=== PATIENT | male | born 1970 | race American Indian/Alaskan Native ===

== ENCOUNTER 2016-11-26 23:16 | Inpatient (IN) | payer OTHER ==
--- NOTE | 2016-11-27 00:09 | C.PDOC ---
History Of Present Illness 46 y/o MALE C/O INTERMITTENT RIGHT SIDED CHEST WALL PAIN FOR 1 WEEK. PT REPORTS PAIN IS WORSE WITH POSITION CHANGE. ALSO REPORTS MILD COUGH. DENIES FEVER, CHILLS, SOB, OR SHAH. DENIES HISTORY OF ASTHMA OR SMOKING. NOTES HE TOOK 2 ADVIL 2 HOURS [employer] WITH LIMITED RELIEF. Time Seen by Provider: 11/27/16 00:04 Chief Complaint (Nursing): Chest Pain History Per: Patient History/Exam Limitations: no limitations Onset/Duration Of Symptoms: Intermittent Episodes (1 WEEK) Current Symptoms Are (Timing): Still Present Quality: "Pain" Associated Symptoms: denies: Dyspnea, Diaphoresis Exacerbating Factors: Movement Recent travel outside of the [place]: No Past Medical History Reviewed: Historical Data, Nursing Documentation, Vital Signs Vital Signs: Last Vital Signs Temp 99 F 11/27/16 00:08 Pulse 97 H 11/27/16 01:14 Resp 24 11/27/16 01:14 BP 128/76 11/27/16 01:14 Pulse Ox 97 11/27/16 01:14 - Medical History PMH: HTN Surgical History: Appendectomy Family History: States: Unknown Family Hx - Social History Hx Alcohol Use: Yes Hx Substance Use: No - Immunization History Hx Tetanus Toxoid Vaccination: No Hx Influenza Vaccination: No Hx Pneumococcal Vaccination: No Review Of Systems Except As Marked, All Systems Reviewed And Found Negative. Constitutional: Negative for: Fever, Chills Cardiovascular: Negative for: Palpitations Respiratory: Positive for: Cough. Negative for: Shortness of Breath Gastrointestinal: Negative for: Nausea, Vomiting, Abdominal Pain Musculoskeletal: Positive for: Other (CHEST WALL PAIN, RIGHT) Skin: Negative for: Rash Neurological: Negative for: Headache, Dizziness Physical Exam - Physical Exam Appears: Non-toxic, No Acute Distress Skin: Warm, Dry Head: Atraumatic, Normacephalic Neck: Supple Chest: Symmetrical, Tenderness (REPRODUCIBLE R CHEST WALL) Cardiovascular: Rhythm Regular (RRR, TACHYCARDIC), No Murmur Respiratory: Normal Breath Sounds, No Rales, No Rhonchi, No Wheezing Gastrointestinal/Abdominal: Soft, No Tenderness, No Guarding, No Rebound Back: Normal Inspection Extremity: Normal ROM, Capillary Refill (< 2 SEC. ) Neurological/Psych: Oriented x3, Normal Speech, Normal Cognition ED Course And Treatment - Laboratory Results Result Diagrams: 11/27/16 00:28 11/27/16 00:28 ECG: Interpreted By Me ECG Rhythm: Sinus Tachycardia ECG Interpretation: No Acute Changes Rate From EC O2 Sat by Pulse Oximetry: 99 - Radiology CXR: Interpreted by Me CXR Interpretation: Yes: Other (POSSIBLE R PERIHILAR INFILTRATE) - CT Scan/US ANGIO CHEST Other Rad Studies (CT/US): Radiology Report Reviewed (VRAD: +PE RLL PULM ARTERY) Progress - Re-Evaluation Re-evaluation Note: 11/27/16 00:10 EKG, CXR, BLOODWORK ORDERED. LIDODERM PATCH GIVEN. 11/27/16 00:50 ABN DDIMER. VSS, EXAM UNCH PRIOR. WILL CTA 11/27/16 03:23 +PE ON CTA. PERSIST SINUS TACH @ 110. NARD. 11/27/16 03:50 D/W DR SARMIENTO C/F ICU, CLEARED FOR TELE 11/27/16 04:01 D/W DR MENDES WILL ADMIT - Data Reviewed Data Reviewed: Lab, Diagnostic imaging, EKG, Old records - Critical Care Citical Care: Excluding Proc Time Critical Care Time: 120 minutes Disposition Counseled Patient/Family Regarding: Studies Performed, Diagnosis, Need For Followup - Disposition Disposition: HOSPITALIZED Disposition Time: 04:00 Condition: STABLE - POA Present On Arrival: Deep Vein Thrombosis / PE - Clinical Impression Clinical Impression: Pulmonary embolism - Scribe Statement The provider has reviewed the documentation as recorded by the Lamin Vo Provider Scribe Attestation: All medical record entries made by the Scribe were at my direction and personally dictated by me. I have reviewed the chart and agree that the record accurately reflects my personal performance of the history, physical exam, medical decision making, and the department course for this patient. I have also personally directed, reviewed, and agree with the discharge instructions and disposition. Decision To Admit - Pt Status Changed To: Hospital Disposition Of: Inpatient - Admit Certification Admit to Inpatient:: After my assessment, the patient will require hospitalization for at least two midnights. This is because of the severity of symptoms shown, intensity of services needed, and/or the medical risk in this patient being treated as an outpatient. - InPatient: Physician Admission Certification: I certify that this patient requires 2 or more midnights of care for the following reason:: SEE NOTE - . Bed Request Type: Telemetry Admitting Physician: Jj Mendes Patient Diagnosis: Pulmonary embolism
[2016-11-27] MEDS ORDERED: Lidocaine 5% Patch TD STA (00:10)
[2016-11-27] MEDS ORDERED: Lidocaine 5% Patch TD ONE (00:10)
[2016-11-27 00:36] LABS: BASO % 0.4 % (0.0-2.0); EOS % 0.1 % (0.0-4.0); HEMATOCRIT 37.3 % (35.0-51.0); LYMPH # 1.9 K/uL (1.0-4.3); LYMPH % 27.4 % (20.0-40.0); MEAN CELL VOLUME 83.9 fL (80.0-94.0); MEAN CORPUSCULAR HEMOGLOBIN 29.2 pg (27.0-31.0); MEAN CORPUSCULAR HGB CONC 34.8 g/dL (33.0-37.0); MEAN PLATELET VOLUME 8.5 fL (7.2-11.7); MONO # 0.8 K/uL (0.0-0.8); MONO % 12.1 % (0.0-10.0); RED CELL DISTRIBUTION WIDTH 13.1 % (11.5-14.5); WHITE BLOOD COUNT 6.8 K/uL (4.8-10.8)
[2016-11-27 00:52] LABS: BLOOD UREA NITROGEN 12 mg/dL (9-20); CALCIUM 9.2 mg/dl (8.6-10.4); CARBON DIOXIDE 25 mmol/L (22-30); CHLORIDE 95 mmol/L (98-107); GFR AFRICAN-AMERICAN > 60; GLUCOSE,RANDOM 111 mg/dL (75-110); POTASSIUM 3.3 mmol/L (3.6-5.2); SODIUM 134 mmol/L (132-148)
[2016-11-27] MEDS ORDERED: Iodixanol 320 MG/ML 100 ML BOTTLE IV ONE (01:46)
[2016-11-27] MEDS ORDERED: Enoxaparin 80 mg Syringe SC STA (03:24)
[2016-11-27] MEDS ORDERED: Enoxaparin 80 mg Syringe ONE (03:37)
--- NOTE | 2016-11-27 04:09 | CP.PCM.HP ---
<Michael Chong - Last Filed: 11/27/16 04:44> History of Present Illness - History of Present Illness History of Present Illness: HPI: Patient is a 46 year old male, with PHMx of HTN, who presents to the [facility] ED with chest pain. Pt reports he first noticed the chest pain on of this week, while he was lying in bed. He describes the pain as a "sharp, intermittent" located on the right side of his chest, radiating down into his right abdomen, that he rates 9/10 on the severity pain scale. Pt reports the pain is made better by rest, and worsened when he lays down, positional changes (sitting up), coughing, and deep inhalation. He also says the pain has been associated with dry cough, which began one week prior. He attempted relief on by taking zantac and dimitris neli. He made appointment with primary care and was given Z-pack which did not help. He also taking 2 advil tablets this afternoon to no avail. He denies recent heavy lifting. He denies fever, chills, headaches, dizziness, hearing, palpitations, or SOB. He denies recent surgeries, but admits frequent air travel "every other weekend." His latest flight was to [place] PMHx: HTN (Dx 7 years ago, has taken HCTZ ever since) PSHx: Appendectomy (2005) SHx: denies ever smoking, admits social alcohol use, denies drug use Fam Hx: Mother and father: HTN Allergies: denies PMD: Jessica (Likely) Present on Admission - Present on Admission Any Indicators Present on Admission: No Review of Systems - Constitutional Constitutional: absent: Chills, Fever - EENT Eyes: absent: Change in Vision Ears: absent: Decreased Hearing - Cardiovascular Cardiovascular: Chest Pain. absent: Chest Pain at Rest, Dyspnea, Dyspnea on Exertion - Respiratory Respiratory: Cough (dry, non-productive; x 1 week). absent: Dyspnea - Gastrointestinal Gastrointestinal: absent: Abdominal Pain, Nausea, Vomiting - Genitourinary Genitourinary: absent: Dysuria - Musculoskeletal Musculoskeletal: absent: Numbness - Integumentary Integumentary: absent: Wounds - Neurological Neurological: absent: Tingling, Weakness - Psychiatric Psychiatric: absent: Anxiety, Depression - Hematologic/Lymphatic Hematologic: absent: Easy Bleeding Past Patient History - Past Social History Smoking Status: Never Smoked - CARDIAC Hx Hypertension: Yes - PULMONARY Hx Respiratory Disorders: No - NEUROLOGICAL Hx Neurological Disorder: No - HEENT Hx HEENT Problems: No - RENAL Hx Chronic Kidney Disease: No - ENDOCRINE/METABOLIC Hx Endocrine Disorders: No - HEMATOLOGICAL/ONCOLOGICAL Hx Blood Disorders: No - INTEGUMENTARY Hx Dermatological Problems: No - MUSCULOSKELETAL/RHEUMATOLOGICAL Hx Musculoskeletal Disorders: No - GASTROINTESTINAL Hx Gastrointestinal Disorders: No - GENITOURINARY/GYNECOLOGICAL Hx Genitourinary Disorders: No - PSYCHIATRIC Hx Substance Use: No - SURGICAL HISTORY Hx Appendectomy: Yes - ANESTHESIA Hx Anesthesia: Yes Hx Anesthesia Reactions: No Meds Allergies/Adverse Reactions: Allergies Allergy/AdvReac Type Severity Reaction Status Date / Time No Known Allergies Allergy Verified 11/26/16 23:30 Physical Exam - Constitutional Appears: Non-toxic, No Acute Distress - Head Exam Head Exam: ATRAUMATIC, NORMAL INSPECTION, NORMOCEPHALIC - Eye Exam Eye Exam: EOMI Pupil Exam: PERRL - ENT Exam ENT Exam: Mucous Membranes Moist - Neck Exam Additional comments: no jvd - Respiratory Exam Respiratory Exam: Chest Wall Tenderness, Clear to Auscultation Bilateral. absent: Rales, Rhonchi, Wheezes - Cardiovascular Exam Cardiovascular Exam: Tachycardia, +S1, +S2 - GI/Abdominal Exam GI & Abdominal Exam: Normal Bowel Sounds, Soft. absent: Tenderness - Extremities Exam Extremities exam: Positive for: normal inspection. Negative for: pedal edema - Back Exam Back exam: absent: CVA tenderness (L), CVA tenderness (R) - Neurological Exam Neurological exam: Alert, CN II-XII Intact, Oriented x3 - Psychiatric Exam Psychiatric exam: Normal Affect - Skin Skin Exam: Normal Color, Warm Results - Vital Signs Recent Vital Signs: Last Vital Signs Temp 98.4 F 11/27/16 03:32 Pulse 97 H 11/27/16 03:32 Resp 24 11/27/16 03:32 BP 137/90 11/27/16 03:32 Pulse Ox 99 11/27/16 04:01 - Labs Result Diagrams: 11/27/16 00:28 11/27/16 00:28 Labs: Laboratory Results - last 24 hr 11/27/16 11/27/16 11/27/16 00:28 00:28 00:28 WBC 6.8 RBC 4.45 Hgb 13.0 Hct 37.3 MCV 83.9 MCH 29.2 MCHC 34.8 RDW 13.1 Plt Count 275 MPV 8.5 Neut % (Auto) 60.0 Lymph % (Auto) 27.4 [place] % (Auto) 12.1 H Eos % (Auto) 0.1 Baso % (Auto) 0.4 Neut # 4.1 Lymph # 1.9 [place] # 0.8 Eos # 0.0 Baso # 0.0 D-Dimer, Quantitative 573 H Sodium 134 Potassium 3.3 L Chloride 95 L Carbon Dioxide 25 Anion Gap 17 BUN 12 Creatinine 1.2 Est GFR ( Amer) > 60 Est GFR (Non-Af Amer) > 60 Random Glucose 111 H Calcium 9.2 Troponin I < 0.0120 Assessment & Plan - Assessment and Plan (Free Text) Assessment: 46 year old male with PMHx of HTN presenting with chest pain. CT Chest positive for PE. Plan: Pulmonary Embolus [place] Criteria for PE: 4.5 pts {Moderate Probability} (Criteria: Tachycardia 1.5 pts, No alternative diagnosis better explains illness 3 pts) - pt admits frequent long flights D-dimer: 573, Troponin negative x 1 CT Angio (11/27/16): Positive for PE in RLL Pulmonary Artery EKG: Sinus tachycardia. Rate:111. No acute ST/T wave changes. CXR (11/27/16): f/u official read Lovenox 80mg SC Q12H O2 saturation: 99% on rm air - 2L O@ PRN Hypertension Normotensive in ED Continue Home med HCTZ 12.5mg PO daily Monitor Electrolyte abnormalities K - 3.3 on presentation Repleted with Kdur x 2 Monitor Prophylaxis VTE: Lovenox 80mg SC Q12H, SCDs GI: Pepcid 20mg PO BID <Jj Lau - Last Filed: 11/27/16 06:28> Results - Vital Signs Recent Vital Signs: Last Vital Signs Temp 98.4 F 11/27/16 03:32 Pulse 92 H 11/27/16 04:40 Resp 18 11/27/16 04:40 BP 137/90 11/27/16 03:32 Pulse Ox 99 11/27/16 04:40 - Labs Result Diagrams: 11/27/16 06:05 11/27/16 00:28 Labs: Laboratory Results - last 24 hr 11/27/16 06:05 WBC 8.1 RBC 4.65 Hgb 13.6 Hct 39.2 MCV 84.4 MCH 29.2 MCHC 34.6 RDW 13.1 Plt Count 279 MPV 8.4 Neut % (Auto) 45.2 L Lymph % (Auto) 38.4 [place] % (Auto) 15.4 H Eos % (Auto) 0.1 Baso % (Auto) 0.9 Neut # 3.7 Lymph # 3.1 [place] # 1.2 H Eos # 0.0 Baso # 0.1 Assessment & Plan - Date & Time Date: 11/27/16 (I have seen and examined the patient. I agree with the findings and plan of care as documented by Dr. Chong. Patient with pulmonary embolism. Confirmed by CT. Start therapeutic Lovenox. Also with history of hypertension. Continue home meds. Patient vitals stable. Monitor for acute changes.) Time: 06:26 Attending/Attestation - Attestation I have personally seen and examined this patient.: Yes I have fully participated in the care of the patient.: Yes I have reviewed all pertinent clinical information: Yes
[2016-11-27] MEDS ORDERED: Potassium Chloride 20 mEq ER Tab PO ONE (05:28)
[2016-11-27] MEDS: Potassium Chloride 20 mEq ER Tab PO SCH ×2 (05:41→08:17)
[2016-11-27 06:16] LABS: BASO # 0.1 K/uL (0.0-0.2); BASO % 0.9 % (0.0-2.0); EOS % 0.1 % (0.0-4.0); HEMATOCRIT 39.2 % (35.0-51.0); LYMPH # 3.1 K/uL (1.0-4.3); LYMPH % 38.4 % (20.0-40.0); MEAN CELL VOLUME 84.4 fL (80.0-94.0); MEAN CORPUSCULAR HEMOGLOBIN 29.2 pg (27.0-31.0); MEAN CORPUSCULAR HGB CONC 34.6 g/dL (33.0-37.0); MEAN PLATELET VOLUME 8.4 fL (7.2-11.7); MONO # 1.2 K/uL (0.0-0.8); MONO % 15.4 % (0.0-10.0); NRBC % 0.2 % (0.0-2.0); RED CELL DISTRIBUTION WIDTH 13.1 % (11.5-14.5); WHITE BLOOD COUNT 8.1 K/uL (4.8-10.8)
[2016-11-27 06:20] LABS: CHLORIDE 99 mmol/L (98-107); POTASSIUM 3.6 mmol/L (3.6-5.2); SODIUM 137 mmol/L (132-148)
[2016-11-27 06:22] LABS: AST/SGOT 68 U/L (17-59); BILIRUBIN,TOTAL 0.8 mg/dL (0.2-1.3); CARBON DIOXIDE 26 mmol/L (22-30); GFR AFRICAN-AMERICAN > 60
[2016-11-27 06:23] LABS: ALB/GLOB RATIO 0.8 (1.0-2.1); ALKALINE PHOSPHATASE 88 U/L (38-126); ALT/SGPT 43 U/L (21-72); BLOOD UREA NITROGEN 14 mg/dL (9-20); CALCIUM 9.2 mg/dl (8.6-10.4); GLUCOSE,RANDOM 91 mg/dL (75-110); PHOSPHOROUS 5.4 mg/dL (2.5-4.5); TOTAL PROTEIN 9.2 g/dL (6.3-8.3)
--- NOTE | 2016-11-27 08:32 | CT ---
PROCEDURE: CT Chest with contrast (Pulmonary Angiogram) HISTORY: SOB r/o PE COMPARISON: None available TECHNIQUE: Axial computed tomography images were obtained of the chest in the pulmonary arterial phase of enhancement. Coronal and sagittal reformatted images were created and reviewed. Intravenous contrast dose: 100 mL of Visipaque 320 Radiation dose: Total exam DLP = 431.82 mGy-cm. This CT exam was performed using one or more of the following dose reduction techniques: Automated exposure control, adjustment of the mA and/or kV according to patient size, and/or use of iterative reconstruction technique. FINDINGS: PULMONARY ARTERIES: Pulmonary arterial filling defect seen in right lower lobe segmental/subsegmental branches. No other pulmonary arterial filling defects are seen elsewhere. AORTA: No acute findings. No thoracic aortic aneurysm. LUNGS: Patchy opacity right lower lobe common nonspecific. Infiltrate versus atelectasis versus pulmonary infarct. Subsegmental atelectasis noted in left lower lobe. PLEURAL SPACES: Trace right pleural effusion HEART: Unremarkable. No cardiomegaly. No significant pericardial effusion. LYMPH NODES: No lymphadenopathy. BONES, CHEST WALL: Unremarkable. No fracture or destructive lesion OTHER FINDINGS: Sections through the upper abdomen demonstrate a 1.8 cm ovoid low-attenuation mass in the right adrenal gland, 15 Hounsfield units postcontrast, consistent with adrenal adenoma. . . IMPRESSION: Right lower lobe segmental/ subsegmental pulmonary artery embolism. Right lower lobe nonspecific opacity, infiltrate versus atelectasis versus infarct. Trace right pleural effusion. Incidental right adrenal adenoma. No additional abnormality Preliminary interpretation of this examination was reported by [employer] at 3:19 a.m. on 11/27/2016. There is concurrence of this report with the preliminary interpretation.
--- NOTE | 2016-11-27 08:52 | RAD ---
HISTORY: COUGH CHEST PAIN COMPARISON: No prior. TECHNIQUE: Chest PA and lateral FINDINGS: LUNGS: Lower lobe infiltrate evident in lateral projection, most likely right lower lobe. No other consolidation seen elsewhere. PLEURA: Minimal blunting both costophrenic angles likely very small pleural effusion versus chronic pleural thickening. No pneumothorax. CARDIOVASCULAR: Normal. OSSEOUS STRUCTURES: No significant abnormalities. VISUALIZED UPPER ABDOMEN: Normal. OTHER FINDINGS: None. IMPRESSION: Probable right lower lobe infiltrate. Followup advised. Questionable small pleural effusion bilaterally versus chronic pleural thickening.
[2016-11-27] MEDS: Enoxaparin 80 mg Syringe SC SCH ×2 (09:31→21:40)
--- NOTE | 2016-11-27 13:08 | VASCLAB ---
PROCEDURE: Lower Extremity Venous Duplex Exam. HISTORY: Chest pain, possible PE PRIORS: None. TECHNIQUE: Bilateral common femoral, femoral, popliteal and posterior tibial, peroneal and great saphenous veins were evaluated. Flow was assessed with color Doppler, compressibility, assessment of phasic flow and augmentation response. Report prepared by KIANA Dunne FINDINGS: RIGHT: 1. Common Femoral Vein: 1.1. Compressibility - Fully compressible: Thrombus - None : Flow - Phasic: Augmentation -Normal: Reflux - None. 2. Femoral Vein: 2.1. Compressibility - Fully compressible: Thrombus - None : Flow - Phasic: Augmentation -Normal: Reflux - None. 3. Popliteal Vein: 3.1. Compressibility - Fully compressible: Thrombus - None : Flow - Phasic: Augmentation -Normal: Reflux - None. 4. Posterior Tibial Vein: 4.1. Compressibility - Fully compressible: Thrombus - None: Flow - Phasic: Augmentation -Normal: Reflux - None. 5. Peroneal Vein: 5.1. Compressibility - Fully compressible: Thrombus - None: Flow - Phasic: Augmentation -Normal: Reflux - None. LEFT: 1. Common Femoral Vein: 1.1. Compressibility - Fully compressible: Thrombus - None: Flow - Phasic: Augmentation -Normal: Reflux - None. 2. Femoral Vein: 2.1. Compressibility - Fully compressible: Thrombus - None: Flow - Phasic: Augmentation -Normal: Reflux - None. 3. Popliteal Vein: 3.1. Compressibility - Fully compressible: Thrombus - None : Flow - Phasic: Augmentation -Normal: Reflux - Moderate.3.03s 4. Posterior Tibial Vein: 4.1. Compressibility - Fully compressible: Thrombus - None: Flow - Phasic: Augmentation -Normal: Reflux - None. 5. Peroneal Vein: 5.1. Compressibility - Fully compressible: Thrombus - None: Flow - Phasic: Augmentation -Normal: Reflux - None. OTHER FINDINGS: Right: None significant. Left: None significant. IMPRESSION: Right: No evidence of deep vein thrombosis of the right lower extremity. Normal valve function noted of the right side. Left: No evidence of deep vein thrombosis of the left lower extremity. Valvular incompetence noted of the left popliteal vein. Bilateral great saphenous veins were not visualized.
--- NOTE | 2016-11-27 17:31 | CP.PCM.CON ---
History of Present Illness - History of Present Illness History of Present Illness: Reason for consultation: Pulm embolism 46 year old male, with PHMx of HTN, who presents to the [facility] ED with chest pain. Pt reports he first noticed the chest pain on , while he was lying in bed. He describes the pain as a "sharp, intermittent" located on the right side of his chest, radiating down into his right abdomen, that he rates 9/ 10 on the severity pain scale. Pt reports the pain is made better by rest, and worsened when he lays down, positional changes (sitting up), coughing, and deep inhalation. He also says the pain has been associated with dry cough, which began one week prior. PMHx: HTN (Dx 7 years ago, has taken HCTZ ever since) PSHx: Appendectomy (2005) SHx: denies ever smoking, admits social alcohol use, denies drug use Fam Hx: Mother and father: HTN Allergies: denies Review of Systems - Review of Systems All systems: reviewed and no additional remarkable complaints except (chest pain ) Past Patient History - Past Social History Smoking Status: Never Smoked - CARDIAC Hx Hypertension: Yes - PULMONARY Hx Respiratory Disorders: No - NEUROLOGICAL Hx Neurological Disorder: No - HEENT Hx HEENT Problems: No - RENAL Hx Chronic Kidney Disease: No - ENDOCRINE/METABOLIC Hx Endocrine Disorders: No - HEMATOLOGICAL/ONCOLOGICAL Hx Blood Disorders: No - INTEGUMENTARY Hx Dermatological Problems: No - MUSCULOSKELETAL/RHEUMATOLOGICAL Hx Falls: No - GASTROINTESTINAL Hx Gastrointestinal Disorders: No - GENITOURINARY/GYNECOLOGICAL Hx Genitourinary Disorders: No - PSYCHIATRIC Hx Substance Use: No - SURGICAL HISTORY Hx Appendectomy: Yes - ANESTHESIA Hx Anesthesia: Yes Hx Anesthesia Reactions: No Meds Home Medications: Home Medication List Medication Instructions Recorded Confirmed Type Rivaroxaban [Xarelto] 15 mg PO Q12H #28 tab 11/30/16 Rx Allergies/Adverse Reactions: Allergies Allergy/AdvReac Type Severity Reaction Status Date / Time No Known Allergies Allergy Verified 11/26/16 23:30 - Medications Medications: Current Medications Enoxaparin Sodium (Lovenox) 80 mg SC Q12 [facility] Last Admin: 11/27/16 09:31 Dose: Not Given Famotidine (Pepcid) 20 mg PO BID [facility] Last Admin: 11/27/16 09:28 Dose: 20 mg Hydrochlorothiazide (Microzide) 12.5 mg PO DAILY [facility] Last Admin: 11/27/16 09:28 Dose: 12.5 mg Ibuprofen (Motrin Tab) 600 mg PO Q6H PRN PRN Reason: Pain, Mild (1-3) Last Admin: 11/27/16 16:47 Dose: 600 mg Morphine Sulfate (Morphine) 1 mg IV Q6H PRN PRN Reason: Pain, moderate (4-7) Last Admin: 11/27/16 12:27 Dose: 1 mg Physical Exam - Constitutional Appears: No Acute Distress - Head Exam Head Exam: ATRAUMATIC, NORMOCEPHALIC - Eye Exam Eye Exam: Normal appearance - ENT Exam ENT Exam: Mucous Membranes Moist - Neck Exam Neck exam: Positive for: Normal Inspection - Respiratory Exam Respiratory Exam: Clear to Auscultation Bilateral - Cardiovascular Exam Cardiovascular Exam: REGULAR RHYTHM - GI/Abdominal Exam GI & Abdominal Exam: Normal Bowel Sounds, Soft - Extremities Exam Extremities exam: Positive for: normal inspection - Neurological Exam Neurological exam: Alert, Oriented x3 Results - Vital Signs Recent Vital Signs: Last Vital Signs Temp 100.5 F H 11/27/16 16:00 Pulse 113 H 11/27/16 16:00 Resp 20 11/27/16 16:00 BP 117/82 11/27/16 16:00 Pulse Ox 96 11/27/16 16:00 - Labs Result Diagrams: 11/30/16 04:00 11/30/16 04:00 Labs: Laboratory Results - last 24 hr 11/27/16 11/27/16 11/27/16 06:05 06:05 10:25 WBC 8.1 RBC 4.65 Hgb 13.6 Hct 39.2 MCV 84.4 MCH 29.2 MCHC 34.6 RDW 13.1 Plt Count 279 MPV 8.4 Neut % (Auto) 45.2 L Lymph % (Auto) 38.4 [place] % (Auto) 15.4 H Eos % (Auto) 0.1 Baso % (Auto) 0.9 Neut # 3.7 Lymph # 3.1 [place] # 1.2 H Eos # 0.0 Baso # 0.1 Sodium 137 Potassium 3.6 Chloride 99 Carbon Dioxide 26 Anion Gap 15 BUN 14 Creatinine 1.0 Est GFR ( Amer) > 60 Est GFR (Non-Af Amer) > 60 Random Glucose 91 Calcium 9.2 Phosphorus 5.4 H Magnesium 2.0 Total Bilirubin 0.8 AST 68 H ALT 43 Alkaline Phosphatase 88 Total Creatine Kinase 386 H CK-MB (Mass) 2.65 Troponin I, Quant < 0.0120 Total Protein 9.2 H Albumin 4.2 Globulin 5.0 H Albumin/Globulin Ratio 0.8 L Urine Opiates Screen Urine Methadone Screen Ur Barbiturates Screen Ur Phencyclidine Scrn Ur Amphetamines Screen U Benzodiazepines Scrn U Oth Cocaine Metabols U Cannabinoids Screen 11/27/16 12:34 WBC RBC Hgb Hct MCV MCH MCHC RDW Plt Count MPV Neut % (Auto) Lymph % (Auto) [place] % (Auto) Eos % (Auto) Baso % (Auto) Neut # Lymph # [place] # Eos # Baso # Sodium Potassium Chloride Carbon Dioxide Anion Gap BUN Creatinine Est GFR ( Amer) Est GFR (Non-Af Amer) Random Glucose Calcium Phosphorus Magnesium Total Bilirubin AST ALT Alkaline Phosphatase Total Creatine Kinase CK-MB (Mass) Troponin I, Quant Total Protein Albumin Globulin Albumin/Globulin Ratio Urine Opiates Screen Positive Urine Methadone Screen Negative Ur Barbiturates Screen Negative Ur Phencyclidine Scrn Negative Ur Amphetamines Screen Negative U Benzodiazepines Scrn Negative U Oth Cocaine Metabols Negative U Cannabinoids Screen Negative Assessment & Plan (1) Pulmonary embolism Assessment and Plan: CAT scan of the chest consistent with right pulmonary embolism Right lung infiltrate most likely infarct Continue Lovenox Echocardiogram showed no right-sided strain or dilatation Follow-up ABG Follow-up venous Doppler of the legs Hypercoagulable workup Status: Acute
--- NOTE | 2016-11-27 22:07 | CP.PCM.PN ---
<Lico Stein - Last Filed: 11/28/16 09:11> Subjective - Date & Time of Evaluation Date of Evaluation: 11/27/16 Time of Evaluation: 11:22 - Subjective Subjective: Pt seen and examined. PT complaining of lower chest pain and shortness of breath. Pt also complains of cough. Pt denies fever, chills, nausea, vomiting, abdominal, diarrhea. Objective - Vital Signs/Intake and Output Vital Signs (last 24 hours): Temp Pulse Resp BP Pulse Ox 100.5 F H 103 H 20 117/82 96 11/27/16 16:00 11/27/16 16:00 11/27/16 16:00 11/27/16 16:00 11/27/16 16:00 Intake and Output: 11/27/16 11/28/16 18:59 06:59 Intake Total 500 Balance 500 - Medications Medications: Current Medications Enoxaparin Sodium (Lovenox) 80 mg SC Q12 [facility] Last Admin: 11/27/16 21:40 Dose: 80 mg Famotidine (Pepcid) 20 mg PO BID [facility] Last Admin: 11/27/16 18:14 Dose: 20 mg Hydrochlorothiazide (Microzide) 12.5 mg PO DAILY [facility] Last Admin: 11/27/16 09:28 Dose: 12.5 mg Ibuprofen (Motrin Tab) 600 mg PO Q6H PRN PRN Reason: Pain, Mild (1-3) Last Admin: 11/27/16 16:47 Dose: 600 mg Morphine Sulfate (Morphine) 1 mg IV Q6H PRN PRN Reason: Pain, moderate (4-7) Last Admin: 11/27/16 18:17 Dose: 1 mg - Labs Labs: 11/27/16 06:05 11/27/16 06:05 - Constitutional Appears: No Acute Distress - Head Exam Head Exam: ATRAUMATIC, NORMOCEPHALIC - Eye Exam Eye Exam: EOMI, PERRL - ENT Exam ENT Exam: Mucous Membranes Moist. absent: Mucous Membranes Dry - Respiratory Exam Respiratory Exam: Rhonchi. absent: Rales, Wheezes - Cardiovascular Exam Cardiovascular Exam: +S1, +S2. absent: Gallop, Rubs - GI/Abdominal Exam GI & Abdominal Exam: Soft. absent: Tenderness - Extremities Exam Extremities Exam: Full ROM. absent: Pedal Edema - Neurological Exam Neurological Exam: Alert, Awake, Oriented x3 - Psychiatric Exam Psychiatric exam: Normal Affect, Normal Mood - Skin Skin Exam: Normal Color, Warm Assessment and Plan - Assessment and Plan (Free Text) Assessment: Pulmonary Embolus: D-dimer: 573 Troponin negative x [address] (PE protocol) (11/27/16): Positive for PE in RLL Pulmonary Artery ( please see full report) EKG: Sinus tachycardia. Rate:111. No acute ST/T wave changes (please see full report) CXR (11/27/16): probable right lower lobe infiltrate (please see full report) Lovenox 80mg SC Q12H Heme/onc, Dr. Silverio, consulted. Help appreciated. Pullorin, Dr. Castillo, consulted. Help appreciated. Pneumonia: CXR - probable right lower lobe infiltrate (please see full report) Rocephin 1 gm IV qd Azithromycin 500 mg po qd PulDr. Jonathan padgett, consulted. Help appreciated. Hypertension HCTZ 12.5 mg po qd Prophylaxis VTE: Lovenox 80mg SC Q12H, SCDs GI: Pepcid 20mg PO BID <Sebastian Schwab - Last Filed: 01/01/17 16:33> Objective - Vital Signs/Intake and Output Vital Signs (last 24 hours): Temp Pulse Resp BP Pulse Ox 100.4 F H 96 H 20 119/76 97 11/29/16 16:00 11/30/16 20:04 11/29/16 16:00 11/29/16 16:00 11/29/16 16:00 - Labs Labs: 11/30/16 04:00 11/30/16 04:00 Attending/Attestation - Attestation I have personally seen and examined this patient.: Yes I have fully participated in the care of the patient.: Yes I have reviewed all pertinent clinical information, including history, physical exam and plan: Yes Notes (Text): Patient Seen and examined with the resident. Agree with the resident's evaluation, assessment and plan. Pulmonary Embolus: D-dimer: 573 Troponin negative x [address] (PE protocol) (11/27/16): Positive for PE in RLL Pulmonary Artery ( please see full report) EKG: Sinus tachycardia. Rate:111. No acute ST/T wave changes (please see full report) CXR (11/27/16): probable right lower lobe infiltrate (please see full report) Lovenox 80mg SC Q12H Heme/onc, Dr. Silverio, consulted. Help appreciated. PulDr. Jonathan padgett, consulted. Help appreciated. Pneumonia: CXR - probable right lower lobe infiltrate (please see full report) Rocephin 1 gm IV qd Azithromycin 500 mg po qd PulDr. Jonathan padgett, consulted. Help appreciated.
--- NOTE | 2016-11-27 22:56 | CARD ---
APPROVED REPORT EKG Measurement Heart [id number] VT [id number] <Conclusion> Sinus tachycardia Possible Left atrial enlargement left ventricular hypertrophy Rightward axis Borderline ECG
[2016-11-28 06:36] LABS: CHLORIDE 98 mmol/L (98-107); POTASSIUM 3.9 mmol/L (3.6-5.2); SODIUM 134 mmol/L (132-148)
[2016-11-28 06:38] LABS: CARBON DIOXIDE 25 mmol/L (22-30); GFR AFRICAN-AMERICAN > 60
[2016-11-28 06:39] LABS: ALB/GLOB RATIO 0.8 (1.0-2.1); ALKALINE PHOSPHATASE 82 U/L (38-126); ALT/SGPT 31 U/L (21-72); AST/SGOT 55 U/L (17-59); BLOOD UREA NITROGEN 16 mg/dL (9-20); CALCIUM 9.4 mg/dl (8.6-10.4); GLUCOSE,RANDOM 84 mg/dL (75-110); PHOSPHOROUS 3.8 mg/dL (2.5-4.5); TOTAL PROTEIN 9.2 g/dL (6.3-8.3)
[2016-11-28 07:10] LABS: BASO % 0.4 % (0.0-2.0); EOS % 0.1 % (0.0-4.0); HEMATOCRIT 40.3 % (35.0-51.0); LYMPH % 26.7 % (20.0-40.0); MEAN CELL VOLUME 84.4 fL (80.0-94.0); MEAN CORPUSCULAR HEMOGLOBIN 29.3 pg (27.0-31.0); MEAN CORPUSCULAR HGB CONC 34.7 g/dL (33.0-37.0); MEAN PLATELET VOLUME 8.8 fL (7.2-11.7); MONO # 1.2 K/uL (0.0-0.8); MONO % 15.7 % (0.0-10.0); NRBC % 0.1 % (0.0-2.0); RED CELL DISTRIBUTION WIDTH 13.4 % (11.5-14.5); WHITE BLOOD COUNT 7.5 K/uL (4.8-10.8)
[2016-11-28] MEDS: Enoxaparin 80 mg Syringe SC SCH (09:55)
--- NOTE | 2016-11-28 10:06 | CARD ---
APPROVED REPORT EXAM: Two-dimensional and M-mode echocardiogram with Doppler and color Doppler. Other Information Quality : GoodRhythm : INDICATION Pulmonary Embolism Chest Pain RISK FACTORS Hypertension M-Mode DIMENSIONS RVDd2.51 (2.1-3.2cm)Left Atrium (MM)3.69 (2.5-4.0cm) IVSd1.22 (0.7-1.1cm)Aortic Root2.95 (2.2-3.7cm) LVDd3.61 (4.0-5.6cm)Aortic Cusp Exc.2.29 (1.5-2.0cm) PWd0.81 (0.7-1.1cm)FS (%) 30 % LVDs2.54 (2.0-3.8cm)LVEF (%)58 (>50%) Mitral Valve MV E Dcwtxysq04.0cm/sMV A Nzxwkaeb67.7cm/sE/A ratio0.7 TDI E/Lateral E'0.0E/Medial E'0.0 Tricuspid Valve TR Peak Aqzbcmat562iq/sTR Peak Gr.[id number] <Conclusion> Left ventricle: thickness: normal; size: normal; overall ejection fraction: 65%: diastolic filling pressures: normal Mitral valve: annulus: normal: leaflets: normal: excursion: normal; no significant trans-mitral gradient:no incompetence: left atrium: upper limit of normal Aortic valve: leaflets:mild calcific thickening: excursion: normal; no significant trans-aortic gradient: No significant incompetence: aortic root: normal Right sided Structures: Pulmonary valve: normal; no significant incompetence; Tricuspid valve: normal; no significant incompetence: Intra-cardiac hemodynamics: pulmonary systolic pressures: normal; central venous pressures: normal trace pericardial effusion
--- NOTE | 2016-11-28 10:31 | CP.PCM.PN ---
Subjective - Date & Time of Evaluation Date of Evaluation: 11/28/16 Time of Evaluation: 08:00 - Subjective Subjective: Patient seen and examined. Sitting comfortably in no acute distress Overnight patient states he had episode of palpitation and shortness of breath Tachycardia on exertion Also complaining of slight cough Denies fevers chills Objective - Vital Signs/Intake and Output Vital Signs (last 24 hours): Temp Pulse Resp BP Pulse Ox 99.2 F 108 H 20 127/72 94 L 11/28/16 10:04 11/28/16 08:51 11/28/16 08:51 11/28/16 08:51 11/28/16 08:51 Intake and Output: 11/28/16 11/28/16 06:59 18:59 Intake Total 240 Balance 240 - Medications Medications: Current Medications Acetaminophen (Tylenol 325mg Tab) 650 mg PO Q6 PRN PRN Reason: Fever >100.4 F Azithromycin (Zithromax) 500 mg PO DAILY [facility] Last Admin: 11/28/16 09:55 Dose: 500 mg Enoxaparin Sodium (Lovenox) 80 mg SC Q12 [facility] Last Admin: 11/28/16 09:55 Dose: 80 mg Famotidine (Pepcid) 20 mg PO BID [facility] Last Admin: 11/28/16 09:55 Dose: 20 mg Hydrochlorothiazide (Microzide) 12.5 mg PO DAILY [facility] Last Admin: 11/28/16 10:02 Dose: 12.5 mg Ceftriaxone Sodium 1 gm/ (Sodium Chloride) 100 mls @ 100 mls/hr IVPB DAILY [facility] Last Admin: 11/28/16 09:55 Dose: 100 mls/hr Ibuprofen (Motrin Tab) 600 mg PO Q6H PRN PRN Reason: Pain, Mild (1-3) Last Admin: 11/27/16 16:47 Dose: 600 mg Morphine Sulfate (Morphine) 1 mg IV Q6H PRN PRN Reason: Pain, moderate (4-7) Last Admin: 11/28/16 02:55 Dose: 1 mg - Labs Labs: 11/28/16 06:12 11/28/16 06:12 - Constitutional Appears: No Acute Distress - Head Exam Head Exam: ATRAUMATIC, NORMOCEPHALIC - Eye Exam Eye Exam: Normal appearance - ENT Exam ENT Exam: Mucous Membranes Moist - Neck Exam Neck Exam: Normal Inspection - Respiratory Exam Respiratory Exam: Clear to Ausculation Bilateral - Cardiovascular Exam Cardiovascular Exam: REGULAR RHYTHM - GI/Abdominal Exam GI & Abdominal Exam: Soft, Normal Bowel Sounds - Extremities Exam Extremities Exam: Full ROM, Normal Inspection - Neurological Exam Neurological Exam: Alert, Oriented x3 Assessment and Plan (1) Pulmonary embolism Assessment & Plan: CAT scan of the chest consistent with right pulmonary embolism Right lung infiltrate most likely infarct Continue Lovenox Echocardiogram showed no right-sided strain or dilatation Follow-up ABG Follow-up venous Doppler of the legs Hypercoagulable workup Status: Acute
[2016-11-28 10:51] LABS: ABG ALLEN TEST PO; ARTERIAL BLOOD HGB O2 SAT 93.1 % (95.0-98.0); CARBOXYHEMOGLOBIN 1.7 % (0.5-1.5); DRAW SITE LRA; HHB 3.7 % (0.0-5.0); METHEMOGLOBIN 1.4 % (0.0-3.0)
--- NOTE | 2016-11-28 16:28 | CP.PCM.PN ---
<EmilLico - Last Filed: 11/28/16 17:27> Subjective - Date & Time of Evaluation Date of Evaluation: 11/28/16 Time of Evaluation: 09:34 - Subjective Subjective: Pt seen and examined. Pt reports that he is having some abdominal pain. Pt also reports cough and fever overnight. Pt also reports slight shortness of breath. Pt denies nausea, vomiting, diarrhea. Objective - Vital Signs/Intake and Output Vital Signs (last 24 hours): Temp Pulse Resp BP Pulse Ox 98.4 F 101 H 20 135/83 94 L 11/28/16 14:08 11/28/16 14:08 11/28/16 14:08 11/28/16 14:08 11/28/16 08:51 Intake and Output: 11/28/16 11/28/16 06:59 18:59 Intake Total 240 320 Balance 240 320 - Medications Medications: Current Medications Acetaminophen (Tylenol 325mg Tab) 650 mg PO Q6 PRN PRN Reason: Fever >100.4 F Azithromycin (Zithromax) 500 mg PO DAILY [facility] Last Admin: 11/28/16 09:55 Dose: 500 mg Famotidine (Pepcid) 20 mg PO BID [facility] Last Admin: 11/28/16 09:55 Dose: 20 mg Hydrochlorothiazide (Microzide) 12.5 mg PO DAILY [facility] Last Admin: 11/28/16 10:02 Dose: 12.5 mg Ceftriaxone Sodium 1 gm/ (Sodium Chloride) 100 mls @ 100 mls/hr IVPB DAILY [facility] Last Admin: 11/28/16 09:55 Dose: 100 mls/hr Ibuprofen (Motrin Tab) 600 mg PO Q6H PRN PRN Reason: Pain, Mild (1-3) Last Admin: 11/27/16 16:47 Dose: 600 mg Morphine Sulfate (Morphine) 1 mg IV Q6H PRN PRN Reason: Pain, moderate (4-7) Last Admin: 11/28/16 02:55 Dose: 1 mg Pneumococcal Polyvalent Vaccine (Pneumovax 23 Vaccine) 0.5 ml IM .ONCE ONE Stop: 11/30/16 10:01 Rivaroxaban (Xarelto) 15 mg PO Q12H [facility] - Labs Labs: 11/28/16 06:12 11/28/16 06:12 - Constitutional Appears: No Acute Distress - Head Exam Head Exam: ATRAUMATIC, NORMOCEPHALIC - Eye Exam Eye Exam: EOMI, PERRL - ENT Exam ENT Exam: Mucous Membranes Moist. absent: Mucous Membranes Dry - Neck Exam Neck Exam: Full ROM. absent: Lymphadenopathy - Respiratory Exam Respiratory Exam: Rales - Cardiovascular Exam Cardiovascular Exam: +S1, +S2. absent: Gallop, Rubs - GI/Abdominal Exam GI & Abdominal Exam: Soft, Tenderness, Normal Bowel Sounds. absent: Distended - Extremities Exam Extremities Exam: Full ROM. absent: Pedal Edema - Neurological Exam Neurological Exam: Alert, Awake, Oriented x3 - Psychiatric Exam Psychiatric exam: Normal Affect, Normal Mood - Skin Skin Exam: Normal Color, Warm Assessment and Plan - Assessment and Plan (Free Text) Assessment: Pulmonary Embolus: Tmax 100.5 HR - 116 D-dimer: 573 Serial troponins negative x [address] (PE protocol) (11/27/16): Positive for PE in RLL Pulmonary Artery ( please see full report) EKG: Sinus tachycardia. Rate:111. No acute ST/T wave changes (please see full report) CXR (11/27/16): probable right lower lobe infiltrate (please see full report) Pt started on Xarelto 15 mg po q12h Heme/onc, Dr. Silverio, consulted. Help appreciated. Coagulation studies pending as per heme/onc PulDr. Jonathan padgett, consulted. Help appreciated. Echocardiogram - normal EF (65%), normal right sided heart function Lower extremity venous duplex - no evidence of DVTs bilaterally, left popliteal valvular incompetence noted Pneumonia: Tmax 100.5 HR - 116 CXR - probable right lower lobe infiltrate (please see full report) Rocephin 1 gm IV qd Azithromycin 500 mg po qd PulDr. Jonathan padgett, consulted. Help appreciated. Tylenol prn for fever Blood cultures pending Procalcitonin pending VBG shock panel pending Hypertension HCTZ 12.5 mg po qd Prophylaxis DVT: Xarelto 15 mg po q12h GI: Protonix 40 mg po qd <Sebastian Schwab - Last Filed: 01/01/17 16:52> Objective - Vital Signs/Intake and Output Vital Signs (last 24 hours): Temp Pulse Resp BP Pulse Ox 100.4 F H 96 H 20 119/76 97 11/29/16 16:00 11/30/16 20:04 11/29/16 16:00 11/29/16 16:00 11/29/16 16:00 - Labs Labs: 11/30/16 04:00 11/30/16 04:00 Attending/Attestation - Attestation I have personally seen and examined this patient.: Yes I have fully participated in the care of the patient.: Yes I have reviewed all pertinent clinical information, including history, physical exam and plan: Yes Notes (Text): Patient Seen and examined with the resident. Agree with the resident's evaluation, assessment and plan. Pulmonary Embolus: Tmax 100.5 HR - 116 D-dimer: 573 Serial troponins negative x [address] (PE protocol) (11/27/16): Positive for PE in RLL Pulmonary Artery ( please see full report) EKG: Sinus tachycardia. Rate:111. No acute ST/T wave changes (please see full report) CXR (11/27/16): probable right lower lobe infiltrate (please see full report) Pt started on Xarelto 15 mg po q12h Andi/onc, Dr. Silverio, consulted. Help appreciated. Coagulation studies pending as per andi/onc Dr. Jonathan Dia, consulted. Help appreciated. Echocardiogram - normal EF (65%), normal right sided heart function Lower extremity venous duplex - no evidence of DVTs bilaterally, left popliteal valvular incompetence noted Pneumonia: Tmax 100.5 HR - 116 CXR - probable right lower lobe infiltrate (please see full report) Rocephin 1 gm IV qd Azithromycin 500 mg po qd PulDr. Jonathan padgett, consulted. Help appreciated. Tylenol prn for fever Blood cultures pending Procalcitonin pending VBG shock panel pending
--- NOTE | 2016-11-28 17:49 | CP.PCM.CON ---
History of Present Illness - History of Present Illness History of Present Illness: 46 yo man admitted with history of one week of sharp, constant right chest pain , not radiating, not relieved by antacids. The patient went to his PMD, treated with antibiotics for 2 days with no significant improvement, so came in to the ER where he was found on CAT scan to have rt. segmental PE with Rt. lower lobe consolidation and minimal pleural effusion. The pain is better, with improvement in breathing. Denies wt. loss, nt. sweats or fevers at home. No history of pelvic or limb surgeries, any recent infections, immobilization. He does give history of frequent air travel, almost weekly, mainly short flights but some earlier this year upto 7 hours long. PMHx-HTN No family history of thromboses, early [place], CVA Past Patient History - Past Social History Smoking Status: Never Smoked - CARDIAC Hx Hypertension: Yes - PULMONARY Hx Respiratory Disorders: No - NEUROLOGICAL Hx Neurological Disorder: No - HEENT Hx HEENT Problems: No - RENAL Hx Chronic Kidney Disease: No - ENDOCRINE/METABOLIC Hx Endocrine Disorders: No - HEMATOLOGICAL/ONCOLOGICAL Hx Blood Disorders: No - INTEGUMENTARY Hx Dermatological Problems: No - MUSCULOSKELETAL/RHEUMATOLOGICAL Hx Falls: No - GASTROINTESTINAL Hx Gastrointestinal Disorders: No - GENITOURINARY/GYNECOLOGICAL Hx Genitourinary Disorders: No - PSYCHIATRIC Hx Substance Use: No - SURGICAL HISTORY Hx Appendectomy: Yes - ANESTHESIA Hx Anesthesia: Yes Hx Anesthesia Reactions: No Meds Allergies/Adverse Reactions: Allergies Allergy/AdvReac Type Severity Reaction Status Date / Time No Known Allergies Allergy Verified 11/26/16 23:30 - Medications Medications: Current Medications Acetaminophen (Tylenol 325mg Tab) 650 mg PO Q6 PRN PRN Reason: Fever >100.4 F Azithromycin (Zithromax) 500 mg PO DAILY [facility] Last Admin: 11/28/16 09:55 Dose: 500 mg Hydrochlorothiazide (Microzide) 12.5 mg PO DAILY [facility] Last Admin: 11/28/16 10:02 Dose: 12.5 mg Ceftriaxone Sodium 1 gm/ (Sodium Chloride) 100 mls @ 100 mls/hr IVPB DAILY [facility] Last Admin: 11/28/16 09:55 Dose: 100 mls/hr Ibuprofen (Motrin Tab) 600 mg PO Q6H PRN PRN Reason: Pain, Mild (1-3) Last Admin: 11/27/16 16:47 Dose: 600 mg Morphine Sulfate (Morphine) 1 mg IV Q6H PRN PRN Reason: Pain, moderate (4-7) Last Admin: 11/28/16 02:55 Dose: 1 mg Pantoprazole Sodium (Protonix Ec Tab) 40 mg PO DAILY [facility] Pneumococcal Polyvalent Vaccine (Pneumovax 23 Vaccine) 0.5 ml IM .ONCE ONE Stop: 11/30/16 10:01 Rivaroxaban (Xarelto) 15 mg PO Q12H [facility] Results - Vital Signs Recent Vital Signs: Last Vital Signs Temp 100.2 F H 11/28/16 16:00 Pulse 116 H 11/28/16 16:00 Resp 20 11/28/16 16:00 BP 115/71 11/28/16 16:00 Pulse Ox 95 11/28/16 16:00 - Labs Result Diagrams: 11/28/16 06:12 11/28/16 06:12 Labs: Laboratory Results - last 24 hr 11/28/16 11/28/16 11/28/16 06:12 06:12 10:47 WBC 7.5 RBC 4.78 Hgb 14.0 Hct 40.3 MCV 84.4 MCH 29.3 MCHC 34.7 RDW 13.4 Plt Count 288 MPV 8.8 Neut % (Auto) 57.1 Lymph % (Auto) 26.7 [place] % (Auto) 15.7 H Eos % (Auto) 0.1 Baso % (Auto) 0.4 Neut # 4.3 Lymph # 2.0 [place] # 1.2 H Eos # 0.0 Baso # 0.0 Puncture Site Lra pCO2 33 L pO2 69 L HCO3 26.1 ABG pH 7.48 H ABG Total CO2 25.6 ABG O2 Saturation 96.2 ABG Base Excess 1.6 ABG Hemoglobin 14.0 ABG Carboxyhemoglobin 1.7 H POC ABG HHb (Measured) 3.7 ABG Methemoglobin 1.4 Dragan Test Po A-a O2 Difference 39.0 Respiratory Index 0.6 Hgb O2 Saturation 93.1 L FiO2 21.0 Sodium 134 Potassium 3.9 Chloride 98 Carbon Dioxide 25 Anion Gap 15 BUN 16 Creatinine 1.2 Est GFR ( Amer) > 60 Est GFR (Non-Af Amer) > 60 POC Glucose (mg/dL) Random Glucose 84 Calcium 9.4 Phosphorus 3.8 Magnesium 2.0 Total Bilirubin 1.0 AST 55 ALT 31 Alkaline Phosphatase 82 Total Protein 9.2 H Albumin 4.1 Globulin 5.1 H Albumin/Globulin Ratio 0.8 L 11/28/16 11:57 WBC RBC Hgb Hct MCV MCH MCHC RDW Plt Count MPV Neut % (Auto) Lymph % (Auto) [place] % (Auto) Eos % (Auto) Baso % (Auto) Neut # Lymph # [place] # Eos # Baso # Puncture Site pCO2 pO2 HCO3 ABG pH ABG Total CO2 ABG O2 Saturation ABG Base Excess ABG Hemoglobin ABG Carboxyhemoglobin POC ABG HHb (Measured) ABG Methemoglobin Dragan Test A-a O2 Difference Respiratory Index Hgb O2 Saturation FiO2 Sodium Potassium Chloride Carbon Dioxide Anion Gap BUN Creatinine Est GFR ( Amer) Est GFR (Non-Af Amer) POC Glucose (mg/dL) 112 H Random Glucose Calcium Phosphorus Magnesium Total Bilirubin AST ALT Alkaline Phosphatase Total Protein Albumin Globulin Albumin/Globulin Ratio Assessment & Plan - Assessment and Plan (Free Text) Assessment: 46 yo man admitted with chest pain, found to have Rt. segmental PE, not associated with hypotension, 2D echo results pending. Agree with starting NOACs for now. Decision regarding length of anticoagulation and future prophylaxis will depend on the results of the hypercoagulable workup. Because of his low grade temps and tacchycardia, agree regarding monitoring for an additional day or so. Discussed at length with patient regarding diagnosis, prognosis, treatment and prophylaxis. He will contact me in a week to go over results of labs drawn
[2016-11-28 19:24] LABS: VENOUS BLOOD GAS BASE EXCESS 0.8 mmol/L (0.0-2.0); VENOUS BLOOD GAS PCO2 34 mmHg (40-60); VENOUS BLOOD PH 7.46 (7.32-7.43)
[2016-11-29 07:16] LABS: BASO % 0.5 % (0.0-2.0); EOS % 0.1 % (0.0-4.0); HEMATOCRIT 40.6 % (35.0-51.0); LYMPH # 2.4 K/uL (1.0-4.3); LYMPH % 33.9 % (20.0-40.0); MEAN CELL VOLUME 84.5 fL (80.0-94.0); MEAN CORPUSCULAR HEMOGLOBIN 29.4 pg (27.0-31.0); MEAN CORPUSCULAR HGB CONC 34.8 g/dL (33.0-37.0); MEAN PLATELET VOLUME 8.3 fL (7.2-11.7); MONO # 1.1 K/uL (0.0-0.8); NRBC % 0.1 % (0.0-2.0)
[2016-11-29 07:40] LABS: GFR AFRICAN-AMERICAN > 60
[2016-11-29 07:41] LABS: ALKALINE PHOSPHATASE 93 U/L (38-126); ALT/SGPT 46 U/L (21-72); AST/SGOT 72 U/L (17-59); BLOOD UREA NITROGEN 17 mg/dL (9-20); CARBON DIOXIDE 26 mmol/L (22-30); GLUCOSE,RANDOM 109 mg/dL (75-110); PHOSPHOROUS 4.5 mg/dL (2.5-4.5); TOTAL PROTEIN 9.1 g/dL (6.3-8.3)
[2016-11-29 07:42] LABS: CALCIUM 9.2 mg/dl (8.6-10.4); MAGNESIUM 2.2 mg/dL (1.6-2.3)
[2016-11-29 07:54] LABS: ALB/GLOB RATIO 0.9 (1.0-2.1); CHLORIDE 95 mmol/L (98-107); POTASSIUM 3.7 mmol/L (3.6-5.2); SODIUM 134 mmol/L (132-148)
[2016-11-29] MEDS ORDERED: Pantoprazole 40 mg EC Tab PO SCH (10:00)
--- NOTE | 2016-11-29 14:46 | CP.PCM.PN ---
Subjective - Date & Time of Evaluation Date of Evaluation: 11/29/16 Time of Evaluation: 10:00 - Subjective Subjective: Patient seen and examined. Denies shortness of breath, denies fever or chills, denies chest pain Still has tachycardia at rest Saturation 98% Afebrile Objective - Vital Signs/Intake and Output Vital Signs (last 24 hours): Temp Pulse Resp BP Pulse Ox 98.7 F 97 H 18 114/77 96 11/29/16 08:36 11/29/16 08:36 11/29/16 08:36 11/29/16 08:36 11/29/16 08:36 Intake and Output: 11/29/16 11/29/16 06:59 18:59 Intake Total 720 Balance 720 - Medications Medications: Current Medications Acetaminophen (Tylenol 325mg Tab) 650 mg PO Q6 PRN PRN Reason: Fever >100.4 F Azithromycin (Zithromax) 500 mg PO DAILY [facility] Last Admin: 11/29/16 10:07 Dose: 500 mg Hydrochlorothiazide (Microzide) 12.5 mg PO DAILY [facility] Last Admin: 11/29/16 09:55 Dose: 12.5 mg Ceftriaxone Sodium 1 gm/ (Sodium Chloride) 100 mls @ 100 mls/hr IVPB DAILY [facility] Last Admin: 11/29/16 09:55 Dose: 100 mls/hr Ibuprofen (Motrin Tab) 600 mg PO Q6H PRN PRN Reason: Pain, Mild (1-3) Last Admin: 11/27/16 16:47 Dose: 600 mg Morphine Sulfate (Morphine) 1 mg IV Q6H PRN PRN Reason: Pain, moderate (4-7) Last Admin: 11/28/16 21:43 Dose: 1 mg Pantoprazole Sodium (Protonix Ec Tab) 40 mg PO DAILY [facility] Last Admin: 11/29/16 09:55 Dose: 40 mg Pneumococcal Polyvalent Vaccine (Pneumovax 23 Vaccine) 0.5 ml IM .ONCE ONE Stop: 11/30/16 10:01 Rivaroxaban (Xarelto) 15 mg PO Q12H [facility] Last Admin: 11/29/16 09:55 Dose: 15 mg - Labs Labs: 11/29/16 07:00 11/29/16 07:00 - Head Exam Head Exam: ATRAUMATIC, NORMOCEPHALIC - Eye Exam Eye Exam: Normal appearance - ENT Exam ENT Exam: Mucous Membranes Moist - Neck Exam Neck Exam: Normal Inspection - Respiratory Exam Respiratory Exam: Clear to Ausculation Bilateral - Cardiovascular Exam Cardiovascular Exam: REGULAR RHYTHM - GI/Abdominal Exam GI & Abdominal Exam: Soft, Normal Bowel Sounds - Extremities Exam Extremities Exam: Normal Inspection - Neurological Exam Neurological Exam: Alert, Oriented x3 Assessment and Plan (1) Pulmonary embolism Assessment & Plan: Continue Lovenox Thyroid function tests for tachycardia Hypercoagulable workup Venous Doppler showed no DVT d/c Zithromax Status: Acute
--- NOTE | 2016-11-29 17:43 | CP.PCM.PN ---
Addendum entered and electronically signed by Lico Stein DO 11/29/16 17: 47: Stat influenza pending; mycoplasma, legionella, strep pneumo antigens pending Original Note: <Lico Stein - Last Filed: 11/29/16 17:40> Subjective - Date & Time of Evaluation Date of Evaluation: 11/29/16 Time of Evaluation: 07:12 - Subjective Subjective: Pt seen and examined. Pt reports that he is feeling much better today. He reports he has a bit of a cough. Pt reports he had a fever overnight. Pt denies chest pain, shortness of breath, nausea, and vomiting. Objective - Vital Signs/Intake and Output Vital Signs (last 24 hours): Temp Pulse Resp BP Pulse Ox 98.7 F 97 H 18 114/77 96 11/29/16 08:36 11/29/16 08:36 11/29/16 08:36 11/29/16 08:36 11/29/16 08:36 Intake and Output: 11/29/16 11/29/16 06:59 18:59 Intake Total 720 530 Balance 720 530 - Medications Medications: Current Medications Acetaminophen (Tylenol 325mg Tab) 650 mg PO Q6 PRN PRN Reason: Fever >100.4 F Hydrochlorothiazide (Microzide) 12.5 mg PO DAILY [facility] Last Admin: 11/29/16 09:55 Dose: 12.5 mg Ceftriaxone Sodium 1 gm/ (Sodium Chloride) 100 mls @ 100 mls/hr IVPB DAILY [facility] Last Admin: 11/29/16 09:55 Dose: 100 mls/hr Ibuprofen (Motrin Tab) 600 mg PO Q6H PRN PRN Reason: Pain, Mild (1-3) Last Admin: 11/27/16 16:47 Dose: 600 mg Morphine Sulfate (Morphine) 1 mg IV Q6H PRN PRN Reason: Pain, moderate (4-7) Last Admin: 11/28/16 21:43 Dose: 1 mg Pantoprazole Sodium (Protonix Ec Tab) 40 mg PO DAILY [facility] Last Admin: 11/29/16 09:55 Dose: 40 mg Pneumococcal Polyvalent Vaccine (Pneumovax 23 Vaccine) 0.5 ml IM .ONCE ONE Stop: 11/30/16 10:01 Rivaroxaban (Xarelto) 15 mg PO Q12H [facility] Last Admin: 11/29/16 09:55 Dose: 15 mg - Labs Labs: 11/29/16 07:00 11/29/16 07:00 - Constitutional Appears: No Acute Distress - Head Exam Head Exam: ATRAUMATIC, NORMOCEPHALIC - Eye Exam Eye Exam: EOMI, PERRL - ENT Exam ENT Exam: Mucous Membranes Moist. absent: Mucous Membranes Dry - Neck Exam Neck Exam: Full ROM - Respiratory Exam Respiratory Exam: Rales. absent: Rhonchi, Wheezes - Cardiovascular Exam Cardiovascular Exam: +S1, +S2 - GI/Abdominal Exam GI & Abdominal Exam: Soft. absent: Distended, Tenderness - Neurological Exam Neurological Exam: Alert, Awake, Oriented x3 - Psychiatric Exam Psychiatric exam: Normal Affect, Normal Mood - Skin Skin Exam: Normal Color, Warm Assessment and Plan - Assessment and Plan (Free Text) Assessment: Pulmonary Embolus: Tmax 100.2 Tachycardic D-dimer: 573 Serial troponins negative x [address] (PE protocol) (11/27/16): Positive for PE in RLL Pulmonary Artery ( please see full report) EKG: Sinus tachycardia. Rate:111. No acute ST/T wave changes (please see full report) CXR (11/27/16): probable right lower lobe infiltrate (please see full report) Pt started on Xarelto 15 mg po q12h Heme/onc, Dr. Silverio, consulted. Help appreciated. Coagulation studies pending as per heme/onc Pulm, Dr. Castillo, consulted. Help appreciated. Echocardiogram - normal EF (65%), normal right sided heart function Lower extremity venous duplex - no evidence of DVTs bilaterally, left popliteal valvular incompetence noted Thyroid studies pending Pneumonia: Tmax 100.2 Tachycardic CXR - probable right lower lobe infiltrate (please see full report) Rocephin 1 gm IV qd Azithromycin discontinued as per pulmonology Tylenol prn for fever Blood cultures negative after 24 hours Procalcitonin 0.22 Lactate 1.1 Hypertension HCTZ 12.5 mg po qd Prophylaxis DVT: Xarelto 15 mg po q12h; SCDS added since venous dopplers were negative GI: Protonix 40 mg po qd <Michael Nixon - Last Filed: 12/03/16 17:31> Objective - Vital Signs/Intake and Output Vital Signs (last 24 hours): Temp Pulse Resp BP Pulse Ox 100.4 F H 96 H 20 119/76 97 11/29/16 16:00 11/30/16 20:04 11/29/16 16:00 11/29/16 16:00 11/29/16 16:00 - Labs Labs: 11/30/16 04:00 11/30/16 04:00 Attending/Attestation - Attestation I have personally seen and examined this patient.: Yes I have fully participated in the care of the patient.: Yes I have reviewed all pertinent clinical information, including history, physical exam and plan: Yes Notes (Text): 12/03/16 17:29 This patient was seen and examined at 5:14 PM 11/29/16 History, Exam, Assessment and Plan were thoroughly gone over with the resident Respiratory Exam: RLL inspiratory crackles Assessment and Plan should also include: Sinus Tachycardia: F/U STAT TSH and T4 Michael Nixon D.O.
[2016-11-29 18:05] VITALS: BP 119/76; RESP 20; TEMP 100.4; O2SAT 97
[2016-11-29 18:18] LABS: FREE T4 0.9 ng/dL (0.78-2.19)
[2016-11-30] MEDS ORDERED: Pneumococcal 23-Valent Vaccine IM ONE (10:00)
--- NOTE | 2016-11-30 19:10 | CP.PCM.PN ---
<Lico Stein - Last Filed: 11/30/16 19:10> Objective - Vital Signs/Intake and Output Vital Signs (last 24 hours): Temp Pulse Resp BP Pulse Ox 100.4 F H 112 H 20 119/76 97 11/29/16 16:00 11/29/16 16:00 11/29/16 16:00 11/29/16 16:00 11/29/16 16:00 - Medications Medications: Current Medications Acetaminophen (Tylenol 325mg Tab) 650 mg PO Q6 PRN PRN Reason: Fever >100.4 F Hydrochlorothiazide (Microzide) 12.5 mg PO DAILY [facility] Last Admin: 11/29/16 09:55 Dose: 12.5 mg Ceftriaxone Sodium 1 gm/ (Sodium Chloride) 100 mls @ 100 mls/hr IVPB DAILY [facility] Last Admin: 11/29/16 09:55 Dose: 100 mls/hr Ibuprofen (Motrin Tab) 600 mg PO Q6H PRN PRN Reason: Pain, Mild (1-3) Last Admin: 11/27/16 16:47 Dose: 600 mg Morphine Sulfate (Morphine) 1 mg IV Q6H PRN PRN Reason: Pain, moderate (4-7) Last Admin: 11/28/16 21:43 Dose: 1 mg Pantoprazole Sodium (Protonix Ec Tab) 40 mg PO DAILY [facility] Last Admin: 11/29/16 09:55 Dose: 40 mg Rivaroxaban (Xarelto) 15 mg PO Q12H [facility] Last Admin: 11/29/16 20:06 Dose: 15 mg - Labs Labs: 11/29/16 07:00 11/29/16 07:00 <Sheryl Tijerina V - Last Filed: 11/30/16 19:56> Objective - Vital Signs/Intake and Output Vital Signs (last 24 hours): Temp Pulse Resp BP Pulse Ox 100.4 F H 112 H 20 119/76 97 11/29/16 16:00 11/29/16 16:00 11/29/16 16:00 11/29/16 16:00 11/29/16 16:00 - Medications Medications: Current Medications Acetaminophen (Tylenol 325mg Tab) 650 mg PO Q6 PRN PRN Reason: Fever >100.4 F Hydrochlorothiazide (Microzide) 12.5 mg PO DAILY [facility] Last Admin: 11/29/16 09:55 Dose: 12.5 mg Ceftriaxone Sodium 1 gm/ (Sodium Chloride) 100 mls @ 100 mls/hr IVPB DAILY [facility] Last Admin: 11/29/16 09:55 Dose: 100 mls/hr Ibuprofen (Motrin Tab) 600 mg PO Q6H PRN PRN Reason: Pain, Mild (1-3) Last Admin: 11/27/16 16:47 Dose: 600 mg Metoprolol Tartrate (Lopressor) 25 mg PO BID [facility] Morphine Sulfate (Morphine) 1 mg IV Q6H PRN PRN Reason: Pain, moderate (4-7) Last Admin: 11/28/16 21:43 Dose: 1 mg Pantoprazole Sodium (Protonix Ec Tab) 40 mg PO DAILY [facility] Last Admin: 11/29/16 09:55 Dose: 40 mg Rivaroxaban (Xarelto) 15 mg PO Q12H [facility] Last Admin: 11/29/16 20:06 Dose: 15 mg - Labs Labs: 11/29/16 07:00 11/29/16 07:00 Attending/Attestation - Attestation I have personally seen and examined this patient.: Yes I have fully participated in the care of the patient.: Yes I have reviewed all pertinent clinical information, including history, physical exam and plan: Yes Notes (Text): Patient seen, examined, and case discussed with day-time resident. Patient seen this morning. Patient reports he was doing well. Patient reports he tolerating going to and from the bathroom. Per discussion with nursing, patient was afebrile overnight and into today. Discussed with pulmonary, discontinue antibiotics, patient does not have pneumonia. Patient remains tachycardic recommended for cardiology evaluation. Cardiology (Dr. العلي) consulted; help appreciated. Discussed with cardiology, who review echocardiogram, recommended for low dose Lopressor 12.5mg PO bid. In the evening, patient decided to leave against medical advice. Risks and benefits for AMA discussed with resident. Patient to leave with 2 week supply with Xarelto and advised to follow-up with heme-onc Dr. Silverio to maintain compliance while treatment for pulmonary embolus and 2 week supply of low dose Lopressor 12.5mg PO bid. Assessment/Plan 1) Pulmonary Embolus: * Afebrile * Tachycardic * D-dimer: 573 * Serial troponins negative x 3 * Chest CT (PE protocol) (11/27/16): Positive for PE in RLL Pulmonary Artery ( please see full report) * EKG: Sinus tachycardia. Rate:111. No acute ST/T wave changes (please see full report) * CXR (11/27/16): probable right lower lobe infiltrate (please see full report) * Pt started on Xarelto 15 mg po q12h (active since 11/28/16) * Per AMA instructions, patient strongly recommended to followup with heme-onc for renewal of Xarelto for treatment of current pulmonary embolus. * Heme/onc, Dr. Silverio, consulted. Help appreciated. * Hypercoagubiltiy workup pending as per heme/onc * Pulm, Dr. Castillo, consulted. Help appreciated. * Echocardiogram - normal EF (65%), normal right sided heart function * Lower extremity venous duplex - no evidence of DVTs bilaterally, left popliteal valvular incompetence noted * Thyroid studies normal 2) Tachycardia * Thryoid studies within normal * D-dimer elevated * Cardiology (Dr. العلي) on case; help appreciated * Recommended for low-dose Lopressor 12.5mg PO bid 3) Hypertension * HCTZ 12.5 mg po qd * monitor vital signs 4) Prophylaxis * Xarelto 15 mg po q12h for PE thepray * SCDS added since venous dopplers were negative * GI: Protonix 40 mg po qdaily
[2016-11-30 20:04] VITALS: PULSE 96
[2016-11-30 20:37] LABS: ALB/GLOB RATIO 0.8 (1.0-2.1); ALKALINE PHOSPHATASE 129 U/L (38-126); ALT/SGPT 65 U/L (21-72); AST/SGOT 78 U/L (17-59); BLOOD UREA NITROGEN 17 mg/dL (9-20); CALCIUM 9.7 mg/dl (8.6-10.4); CARBON DIOXIDE 30 mmol/L (22-30); CHLORIDE 94 mmol/L (98-107); GFR AFRICAN-AMERICAN > 60; GLUCOSE,RANDOM 99 mg/dL (75-110); MAGNESIUM 2.4 mg/dL (1.6-2.3); PHOSPHOROUS 4.8 mg/dL (2.5-4.5); POTASSIUM 3.7 mmol/L (3.6-5.2); SODIUM 136 mmol/L (132-148); TOTAL PROTEIN 9.3 g/dL (6.3-8.3)
--- NOTE | 2016-11-30 20:50 | CP.PCM.DIS ---
<BreezySheryl V - Last Filed: 12/03/16 13:53> Provider - Provider Date of Admission: 11/27/16 04:02 Attending physician: Jj Lau MD Hospital Course - Lab Results Lab Results: Micro Results 11/28/16 08:00 Blood Blood Culture - Preliminary NO GROWTH AFTER 4 DAYS 11/28/16 11:00 Blood Blood Culture - Preliminary NO GROWTH AFTER 4 DAYS Most Recent Lab Values WBC 6.9 K/uL (4.8-10.8) 11/30/16 04:00 RBC 4.79 Mil/uL (4.40-5.90) 11/30/16 04:00 Hgb 14.1 g/dL (12.0-18.0) 11/30/16 04:00 Hct 40.3 % (35.0-51.0) 11/30/16 04:00 MCV 84.0 fL (80.0-94.0) 11/30/16 04:00 MCH 29.3 pg (27.0-31.0) 11/30/16 04:00 MCHC 34.9 g/dL (33.0-37.0) 11/30/16 04:00 RDW 13.0 % (11.5-14.5) 11/30/16 04:00 Plt Count 340 K/uL (130-400) 11/30/16 04:00 MPV 9.1 fL (7.2-11.7) 11/30/16 04:00 Neut % (Auto) 39.9 % (50.0-75.0) L 11/30/16 04:00 Lymph % (Auto) 41.7 % (20.0-40.0) H 11/30/16 04:00 [place] % (Auto) 17.7 % (0.0-10.0) H 11/30/16 04:00 Eos % (Auto) 0.3 % (0.0-4.0) 11/30/16 04:00 Baso % (Auto) 0.4 % (0.0-2.0) 11/30/16 04:00 Neut # 2.8 K/uL (1.8-7.0) 11/30/16 04:00 Lymph # 2.9 K/uL (1.0-4.3) 11/30/16 04:00 [place] # 1.2 K/uL (0.0-0.8) H 11/30/16 04:00 Eos # 0.0 K/uL (0.0-0.7) 11/30/16 04:00 Baso # 0.0 K/uL (0.0-0.2) 11/30/16 04:00 D-Dimer, Quantitative 573 ng/mlDDU (0-243) H 11/27/16 00:28 Lupus Anticoagulant see note 11/28/16 06:12 LA PTT Screen 35 sec (<=40) 11/28/16 06:12 dRVVT Mixing Study 21 sec (<=45) 11/28/16 06:12 dRVVT Mix Interpret Not indicated 11/28/16 06:12 Antithrombin III Activ 87 % activity (80-120) 11/28/16 06:12 Factor V see note 11/28/16 06:12 Puncture Site Lra 11/28/16 10:47 pCO2 33 mm/Hg (35-45) L 11/28/16 10:47 pO2 49 mm/Hg (30-55) 11/28/16 19:20 HCO3 26.1 mmol/L (21-28) 11/28/16 10:47 ABG pH 7.48 (7.35-7.45) H 11/28/16 10:47 ABG Total CO2 25.6 mmol/L (22-28) 11/28/16 10:47 ABG O2 Saturation 96.2 % (95-98) 11/28/16 10:47 ABG Base Excess 1.6 mmol/L (-2.0-3.0) 11/28/16 10:47 ABG Hemoglobin 14.0 g/dL (11.7-17.4) 11/28/16 10:47 ABG Carboxyhemoglobin 1.7 % (0.5-1.5) H 11/28/16 10:47 POC ABG HHb (Measured) 3.7 % (0.0-5.0) 11/28/16 10:47 ABG Methemoglobin 1.4 % (0.0-3.0) 11/28/16 10:47 Dragan Test Po 11/28/16 10:47 VBG pH 7.46 (7.32-7.43) H 11/28/16 19:20 VBG pCO2 34 mmHg (40-60) L 11/28/16 19:20 VBG HCO3 25.3 mmol/L 11/28/16 19:20 VBG Total CO2 25.2 mmol/L (22-28) 11/28/16 19:20 VBG O2 Sat (Calc) 88.6 % (40-65) H 11/28/16 19:20 VBG Base Excess 0.8 mmol/L (0.0-2.0) 11/28/16 19:20 VBG Potassium 3.7 mmol/L (3.6-5.2) 11/28/16 19:20 A-a O2 Difference 39.0 mm/Hg 11/28/16 10:47 Respiratory Index 0.6 11/28/16 10:47 Hgb O2 Saturation 93.1 % (95.0-98.0) L 11/28/16 10:47 Sodium 135.0 mmol/l (132-148) 11/28/16 19:20 Chloride 101.0 mmol/L (98-107) 11/28/16 19:20 Glucose 104 mg/dl (75-110) 11/28/16 19:20 Lactate 1.1 mmol/L (0.7-2.1) 11/28/16 19:20 FiO2 21.0 % 11/28/16 19:20 Sodium 136 mmol/L (132-148) 11/30/16 04:00 Potassium 3.7 mmol/L (3.6-5.2) 11/30/16 04:00 Chloride 94 mmol/L (98-107) L 11/30/16 04:00 Carbon Dioxide 30 mmol/L (22-30) 11/30/16 04:00 Anion Gap 16 (10-20) 11/30/16 04:00 BUN 17 mg/dL (9-20) 11/30/16 04:00 Creatinine 1.2 MG/DL (0.8-1.5) 11/30/16 04:00 Est GFR ( Amer) > 60 11/30/16 04:00 Est GFR (Non-Af Amer) > 60 11/30/16 04:00 POC Glucose (mg/dL) 112 mg/dL (65-110) H 11/28/16 11:57 Random Glucose 99 mg/dL (75-110) 11/30/16 04:00 Calcium 9.7 mg/dl (8.6-10.4) 11/30/16 04:00 Phosphorus 4.8 mg/dL (2.5-4.5) H 11/30/16 04:00 Magnesium 2.4 mg/dL (1.6-2.3) H 11/30/16 04:00 Total Bilirubin 1.0 mg/dL (0.2-1.3) 11/30/16 04:00 AST 78 U/L (17-59) H 11/30/16 04:00 ALT 65 U/L (21-72) 11/30/16 04:00 Alkaline Phosphatase 129 U/L (38-126) H D 11/30/16 04:00 Total Creatine Kinase 386 U/L (55-170) H 11/27/16 10:25 CK-MB (Mass) 2.65 ng/mL (0.0-3.38) 11/27/16 10:25 Troponin I < 0.0120 ng/mL (0.00-0.120) 11/27/16 00:28 Troponin I, Quant < 0.0120 ng/mL (0.00-0.120) 11/27/16 10:25 Total Protein 9.3 g/dL (6.3-8.3) H 11/30/16 04:00 Albumin 4.2 g/dL (3.5-5.0) 11/30/16 04:00 Globulin 5.1 gm/dL (2.2-3.9) H 11/30/16 04:00 Albumin/Globulin Ratio 0.8 (1.0-2.1) L 11/30/16 04:00 Procalcitonin 0.22 NG/ML (0.19-0.49) 11/28/16 19:44 Free T4 1.48 ng/dL (0.78-2.19) 11/30/16 15:15 Total T3 1.56 nmol/L (1.49-2.60) 11/30/16 15:15 TSH 3rd Generation 1.80 mIU/L (0.46-4.68) 11/30/16 15:15 Venous Blood Potassium 3.7 mmol/L (3.6-5.2) 11/28/16 19:20 Stool Occult Blood Negative (NEGATIVE) 11/28/16 17:52 Urine Opiates Screen Positive (NEGATIVE) 11/27/16 12:34 Urine Methadone Screen Negative (NEGATIVE) 11/27/16 12:34 Ur Barbiturates Screen Negative (NEGATIVE) 11/27/16 12:34 Ur Phencyclidine Scrn Negative (NEGATIVE) 11/27/16 12:34 Ur Amphetamines Screen Negative (NEGATIVE) 11/27/16 12:34 U Benzodiazepines Scrn Negative (NEGATIVE) 11/27/16 12:34 U Oth Cocaine Metabols Negative (NEGATIVE) 11/27/16 12:34 U Cannabinoids Screen Negative (NEGATIVE) 11/27/16 12:34 YADIEL 6 Profile Negative (NEGATIVE) 11/28/16 06:12 Influenza Typ A,B (EIA) Negative for flu a/b (NEGATIVE) 11/29/16 19:06 Ur L.pneumophila Ag Negative (NEGATIVE) 11/29/16 21:31 Mycoplasma pneumon IgM Negative (NEGATIVE) 11/29/16 19:04 Prothrombin Mut Interp see note 11/28/16 06:12 Prothrombin Gene Mutate see note 11/28/16 06:12 Prothromb Gene Review see note 11/28/16 06:12 Discharge Plan - Discharge Medications Prescriptions: Rivaroxaban [Xarelto] 15 mg PO Q12H #28 tab - Follow Up Plan Condition: SERIOUS Disposition: AGAINST MEDICAL ADVICE Additional Instructions: Please follow up with therapeutic massage technician Dr. Silverio within one week. Please also follow up with chocolate temperer, Dr. Castillo, within one week. Please take medications for xarelto and metoprolol as prescribed. Attending/Attestation - Attestation I have personally seen and examined this patient.: Yes I have fully participated in the care of the patient.: Yes I have reviewed all pertinent clinical information, including history, physical exam and plan: Yes Notes (Text): This is late computer entry for 11/30/16. Patient seen, examined, and case discussed with day-time resident. Patient seen this morning. Patient reports he was doing well. Patient reports he tolerating going to and from the bathroom. Per discussion with nursing, patient was afebrile overnight and into today. Discussed with pulmonary, discontinue antibiotics, patient does not have pneumonia. Patient remains tachycardic recommended for cardiology evaluation. Cardiology (Dr. العلي) consulted; help appreciated. Discussed with cardiology, who review echocardiogram, recommended for low dose Lopressor 12.5mg PO bid. In the evening, patient decided to leave against medical advice. Risks and benefits for AMA discussed with resident. Patient to leave with 2 week supply with Xarelto and advised to follow-up with heme-onc Dr. Silverio to maintain compliance while treatment for pulmonary embolus and 2 week supply of low dose Lopressor 12.5mg PO bid. Patient reports he has sufficient supply of his HCTZ. Assessment/Plan 1) Pulmonary Embolus: * Afebrile * Tachycardic * D-dimer: 573 * Serial troponins negative x 3 * Chest CT (PE protocol) (11/27/16): Positive for PE in RLL Pulmonary Artery ( please see full report) * EKG: Sinus tachycardia. Rate:111. No acute ST/T wave changes (please see full report) * CXR (11/27/16): probable right lower lobe infiltrate (please see full report) * Pt started on Xarelto 15 mg po q12h (active since 11/28/16) * Per AMA instructions, patient strongly recommended to followup with heme-onc for renewal of Xarelto for treatment of current pulmonary embolus. * Heme/onc, Dr. Silverio, consulted. Help appreciated. * Hypercoagubiltiy workup pending as per heme/onc * Pulm, Dr. Castillo, consulted. Help appreciated. * Echocardiogram - normal EF (65%), normal right sided heart function * Lower extremity venous duplex - no evidence of DVTs bilaterally, left popliteal valvular incompetence noted * Thyroid studies normal 2) Tachycardia * Thryoid studies within normal * D-dimer elevated * Cardiology (Dr. العلي) on case; help appreciated * Recommended for low-dose Lopressor 12.5mg PO bid 3) Hypertension * HCTZ 12.5 mg po qd * monitor vital signs 4) Prophylaxis * Xarelto 15 mg po q12h for PE thepray * SCDS added since venous dopplers were negative * GI: Protonix 40 mg po qdaily <Lico Stein - Last Filed: 12/05/16 01:30> Provider - Provider Date of Admission: 11/27/16 04:02 Attending physician: Jj Lau MD Consults: Pulmonolgy, Dr. Jonathan Don/onc, Dr. Juddathingal Time Spent in preparation of Discharge (in minutes): 38 Hospital Course - Lab Results Lab Results: Micro Results 11/28/16 08:00 Blood Blood Culture - Preliminary NO GROWTH AFTER 48 HOURS 11/28/16 11:00 Blood Blood Culture - Preliminary NO GROWTH AFTER 48 HOURS Most Recent Lab Values WBC 7.0 K/uL (4.8-10.8) 11/29/16 07:00 RBC 4.80 Mil/uL (4.40-5.90) 11/29/16 07:00 Hgb 14.1 g/dL (12.0-18.0) 11/29/16 07:00 Hct 40.6 % (35.0-51.0) 11/29/16 07:00 MCV 84.5 fL (80.0-94.0) 11/29/16 07:00 MCH 29.4 pg (27.0-31.0) 11/29/16 07:00 MCHC 34.8 g/dL (33.0-37.0) 11/29/16 07:00 RDW 13.0 % (11.5-14.5) 11/29/16 07:00 Plt Count 296 K/uL (130-400) 11/29/16 07:00 MPV 8.3 fL (7.2-11.7) 11/29/16 07:00 Neut % (Auto) 49.5 % (50.0-75.0) L 11/29/16 07:00 Lymph % (Auto) 33.9 % (20.0-40.0) 11/29/16 07:00 [place] % (Auto) 16.0 % (0.0-10.0) H 11/29/16 07:00 Eos % (Auto) 0.1 % (0.0-4.0) 11/29/16 07:00 Baso % (Auto) 0.5 % (0.0-2.0) 11/29/16 07:00 Neut # 3.4 K/uL (1.8-7.0) 11/29/16 07:00 Lymph # 2.4 K/uL (1.0-4.3) 11/29/16 07:00 [place] # 1.1 K/uL (0.0-0.8) H 11/29/16 07:00 Eos # 0.0 K/uL (0.0-0.7) 11/29/16 07:00 Baso # 0.0 K/uL (0.0-0.2) 11/29/16 07:00 D-Dimer, Quantitative 573 ng/mlDDU (0-243) H 11/27/16 00:28 Puncture Site Lra 11/28/16 10:47 pCO2 33 mm/Hg (35-45) L 11/28/16 10:47 pO2 49 mm/Hg (30-55) 11/28/16 19:20 HCO3 26.1 mmol/L (21-28) 11/28/16 10:47 ABG pH 7.48 (7.35-7.45) H 11/28/16 10:47 ABG Total CO2 25.6 mmol/L (22-28) 11/28/16 10:47 ABG O2 Saturation 96.2 % (95-98) 11/28/16 10:47 ABG Base Excess 1.6 mmol/L (-2.0-3.0) 11/28/16 10:47 ABG Hemoglobin 14.0 g/dL (11.7-17.4) 11/28/16 10:47 ABG Carboxyhemoglobin 1.7 % (0.5-1.5) H 11/28/16 10:47 POC ABG HHb (Measured) 3.7 % (0.0-5.0) 11/28/16 10:47 ABG Methemoglobin 1.4 % (0.0-3.0) 11/28/16 10:47 Dragan Test Po 11/28/16 10:47 VBG pH 7.46 (7.32-7.43) H 11/28/16 19:20 VBG pCO2 34 mmHg (40-60) L 11/28/16 19:20 VBG HCO3 25.3 mmol/L 11/28/16 19:20 VBG Total CO2 25.2 mmol/L (22-28) 11/28/16 19:20 VBG O2 Sat (Calc) 88.6 % (40-65) H 11/28/16 19:20 VBG Base Excess 0.8 mmol/L (0.0-2.0) 11/28/16 19:20 VBG Potassium 3.7 mmol/L (3.6-5.2) 11/28/16 19:20 A-a O2 Difference 39.0 mm/Hg 11/28/16 10:47 Respiratory Index 0.6 11/28/16 10:47 Hgb O2 Saturation 93.1 % (95.0-98.0) L 11/28/16 10:47 Sodium 135.0 mmol/l (132-148) 11/28/16 19:20 Chloride 101.0 mmol/L (98-107) 11/28/16 19:20 Glucose 104 mg/dl (75-110) 11/28/16 19:20 Lactate 1.1 mmol/L (0.7-2.1) 11/28/16 19:20 FiO2 21.0 % 11/28/16 19:20 Sodium 136 mmol/L (132-148) 11/30/16 04:00 Potassium 3.7 mmol/L (3.6-5.2) 11/30/16 04:00 Chloride 94 mmol/L (98-107) L 11/30/16 04:00 Carbon Dioxide 30 mmol/L (22-30) 11/30/16 04:00 Anion Gap 16 (10-20) 11/30/16 04:00 BUN 17 mg/dL (9-20) 11/30/16 04:00 Creatinine 1.2 MG/DL (0.8-1.5) 11/30/16 04:00 Est GFR ( Amer) > 60 11/30/16 04:00 Est GFR (Non-Af Amer) > 60 11/30/16 04:00 POC Glucose (mg/dL) 112 mg/dL (65-110) H 11/28/16 11:57 Random Glucose 99 mg/dL (75-110) 11/30/16 04:00 Calcium 9.7 mg/dl (8.6-10.4) 11/30/16 04:00 Phosphorus 4.8 mg/dL (2.5-4.5) H 11/30/16 04:00 Magnesium 2.4 mg/dL (1.6-2.3) H 11/30/16 04:00 Total Bilirubin 1.0 mg/dL (0.2-1.3) 11/30/16 04:00 AST 78 U/L (17-59) H 11/30/16 04:00 ALT 65 U/L (21-72) 11/30/16 04:00 Alkaline Phosphatase 129 U/L (38-126) H D 11/30/16 04:00 Total Creatine Kinase 386 U/L (55-170) H 11/27/16 10:25 CK-MB (Mass) 2.65 ng/mL (0.0-3.38) 11/27/16 10:25 Troponin I < 0.0120 ng/mL (0.00-0.120) 11/27/16 00:28 Troponin I, Quant < 0.0120 ng/mL (0.00-0.120) 11/27/16 10:25 Total Protein 9.3 g/dL (6.3-8.3) H 11/30/16 04:00 Albumin 4.2 g/dL (3.5-5.0) 11/30/16 04:00 Globulin 5.1 gm/dL (2.2-3.9) H 11/30/16 04:00 Albumin/Globulin Ratio 0.8 (1.0-2.1) L 11/30/16 04:00 Procalcitonin 0.22 NG/ML (0.19-0.49) 11/28/16 19:44 Free T4 0.90 ng/dL (0.78-2.19) 11/29/16 17:27 TSH 3rd Generation 3.00 mIU/L (0.46-4.68) 11/29/16 17:27 Venous Blood Potassium 3.7 mmol/L (3.6-5.2) 11/28/16 19:20 Stool Occult Blood Negative (NEGATIVE) 11/28/16 17:52 Urine Opiates Screen Positive (NEGATIVE) 11/27/16 12:34 Urine Methadone Screen Negative (NEGATIVE) 11/27/16 12:34 Ur Barbiturates Screen Negative (NEGATIVE) 11/27/16 12:34 Ur Phencyclidine Scrn Negative (NEGATIVE) 11/27/16 12:34 Ur Amphetamines Screen Negative (NEGATIVE) 11/27/16 12:34 U Benzodiazepines Scrn Negative (NEGATIVE) 11/27/16 12:34 U Oth Cocaine Metabols Negative (NEGATIVE) 11/27/16 12:34 U Cannabinoids Screen Negative (NEGATIVE) 11/27/16 12:34 YADIEL 6 Profile Negative (NEGATIVE) 11/28/16 06:12 Influenza Typ A,B (EIA) Negative for flu a/b (NEGATIVE) 11/29/16 19:06 Ur L.pneumophila Ag Negative (NEGATIVE) 11/29/16 21:31 Mycoplasma pneumon IgM Negative (NEGATIVE) 11/29/16 19:04 Prothrombin Mut Interp see note 11/28/16 06:12 Prothrombin Gene Mutate see note 11/28/16 06:12 Prothromb Gene Review see note 11/28/16 06:12 - Hospital Course Hospital Course: HPI:Patient is a 46 year old male, with PHMx of HTN, who presents to the [facility] ED with chest pain. Pt reports he first noticed the chest pain on of this week, while he was lying in bed. He describes the pain as a "sharp, intermittent" located on the right side of his chest, radiating down into his right abdomen, that he rates 9/10 on the severity pain scale. Pt reports the pain is made better by rest, and worsened when he lays down, positional changes (sitting up), coughing, and deep inhalation. He also says the pain has been associated with dry cough, which began one week prior. He attempted relief on by taking zantac and dimitris neli. He made appointment with primary care and was given Z-pack which did not help. He also taking 2 advil tablets this afternoon to no avail. He denies recent heavy lifting. He denies fever, chills, headaches, dizziness, hearing, palpitations, or SOB. He denies recent surgeries, but admits frequent air travel "every other weekend." His latest flight was to [place]. Hospital Course: Upon admission, pt was tachycardic and found to have a D-dimer of 573. Serial troponins were negative x 3. EKG revealed sinus tachycardia. Chest X-ray revealed a probable right lower lobe infiltrate (please see full report). Chest CT (PE protocol) was positive for pulmonary embolism in RLL Pulmonary Artery (please see full report). Echocardiogram revealed a normal EF ( 65%), normal right sided heart function (please see full report). Bilateral lower extremity venous doppler ultrasounds revealed no evidence of DVTs bilaterally, left popliteal valvular incompetence noted (please see full report) . Pt was started on therapeutic lovenox therapy and after 24 hours switched to oral anticoagulant, xarelto. Heme/onc, Dr. Silverio, was consulted. Pulmonolgy, Dr. Castillo, was also consulted. Pt was started on rocephin and azithromycin for possible pneumonia superimposed on the pulmonary embolism. Urine legionella and mycoplasma were negative. As per heme/onc, hypercoagulable work was ordered, including protein c and s deficiency and antiphospholipid antibody. Pt spiked a low grade temperature of 100.2 and remained tachycardic throughout hospital course. Thyroid studies ordered were all negative. Cardiology, Dr. العلي, was consulted. Pt was started on low dose beta checo. Asa per Dr. Castillo, pt likely does not have pneumonia. Pt was also treated for his hypertension with home medication of HCTZ. Pt signed out against medical advice, despite being warned of risks, which include . Pt was given prescription for oral anticoagulation and beta checo and advised to follow up with Heme/onc, pulm, and cariodology as soon as possible. Pt was awake, alert, and oriented x 3. Discharge Exam - Head Exam Head Exam: ATRAUMATIC, NORMOCEPHALIC - Eye Exam Eye Exam: EOMI, PERRL - ENT Exam ENT Exam: Mucous Membranes Moist - Respiratory Exam Respiratory Exam: Rales. absent: Rhonchi, Wheezes - Cardiovascular Exam Cardiovascular Exam: +S1, +S2. absent: Gallop, Rubs - GI/Abdominal Exam GI & Abdominal Exam: Normal Bowel Sounds, Soft. absent: Distended, Guarding, Tenderness - Extremities Exam Extremities exam: full ROM - Neurological Exam Neurological exam: Alert, Oriented x3 - Psychiatric Exam Psychiatric exam: Normal Affect, Normal Mood - Skin Skin Exam: Normal Color, Warm Clinical Quality Measures - CQM - VTE Did patient receive overlap therapy during hosptialization?: Yes If yes, what was given to the patient?: Lovenox, Xarelto Surgical Overlap Therapy Reason during Hospitalization: No Medical Reason for Overlap Therapy during Hospitalization: pulmonary embolism Is patient being discharged on overlap therapy?: Yes If yes, what prescription has been given to the patient?: Xarelto - Date & Time of Discharge Summary Date of Discharge Summary: 11/30/16 Time of Discharge Summary: 13:45
[2016-11-30 22:19] LABS: BASO % 0.4 % (0.0-2.0); EOS % 0.3 % (0.0-4.0); HEMATOCRIT 40.3 % (35.0-51.0); LYMPH # 2.9 K/uL (1.0-4.3); LYMPH % 41.7 % (20.0-40.0); MEAN CORPUSCULAR HEMOGLOBIN 29.3 pg (27.0-31.0); MEAN CORPUSCULAR HGB CONC 34.9 g/dL (33.0-37.0); MEAN PLATELET VOLUME 9.1 fL (7.2-11.7); MONO # 1.2 K/uL (0.0-0.8); MONO % 17.7 % (0.0-10.0); NRBC % 0.1 % (0.0-2.0); WHITE BLOOD COUNT 6.9 K/uL (4.8-10.8)
[2016-12-01 00:40] LABS: THYROID STIMULATING HORMONE 1.8 mIU/L (0.46-4.68)
== END 2016-11-30 19:50 | disposition left against medical advice (07) | DRG 176 ==
LOC: C.ER 23:16 → C.9E 11-27 04:02 → C.5T 11-27 06:09
PROVIDERS: ADMIT Family Medicine; ATTEND Family Medicine
DX: I26.99 Other pulmonary embolism without acute cor pulmonale (principal); I10 Essential (primary) hypertension; R00.0 Tachycardia, unspecified